=== PATIENT | female | born 1965 | race American Indian/Alaskan Native ===

== ENCOUNTER 2025-04-19 15:52 | Emergency (ER) | payer OTHER ==
[2025-04-19 16:19] LABS: PLATELET COUNT,PLT 316 10^3/uL (150-450); RED BLOOD CELL COUNT 5.24 10^6/uL (4.2-5.4); WHITE BLOOD CELL COUNT,WBC 9.8 10^3/uL (5.0-10.0)
[2025-04-19 16:29] LABS: BASOPHILS PERCENT AUTO 0.9 % (0.0-1.0); EOSINOPHILS PERCENT AUTO 11.8 % (1.0-3.0); LYMPHOCYTES PERCENT AUTO 29.7 % (20.5-50.1); MONOCYTES PERCENT AUTO 6.5 % (2-8); NEUTROPHILS PERCENT AUTO 51.1 % (42.2-75.2)
[2025-04-19 16:43] LABS: A/G RATIO 0.85; ALANINE AMINOTRANSFERASE,ALT 38.0 U/L (14-59); ASPARTATE AMNIOTRANSFERASE,AST 17.0 U/L (15-37); BILIRUBIN TOTAL 0.3 mg/dL (0.2-1.0); BLOOD UREA NITROGEN,BUN 10.0 mg/dL (7-18); CARBON DIOXIDE,CO2 32.0 mmol/L (21-32); CHLORIDE,CL 103.0 mmol/L (98-107); CREATININE 0.98 mg/dL (0.55-1.02); EST CRCL DRUG DOSING (CG) 54.69 mL/min; ESTIMATED GFR 67.0 mL/min (>=60); GLUCOSE RANDOM 113.0 mg/dL (70-99); POTASSIUM,K 3.5 mmol/L (3.5-5.1); PROTEIN TOTAL,TP 7.2 g/dL (6.4-8.2); SODIUM,NA 140.0 mmol/L (136-145)
[2025-04-19 16:48] LABS: B-TYPE NATRIURETIC PEPTIDE,BNP 9.0 pg/ml (0-100)
[2025-04-19 16:50] LABS: EOSINOPHILS PERCENT MAN 15 % (1-3); LYMPHOCYTES PERCENT MAN 37 % (20-50); MONOCYTES PERCENT MAN 4 % (2-8); SEG NEUTROPHILS PERCENT MAN 44 % (42-75)
[2025-04-19] MEDS: Dexamethasone 4 MG/ML SDV IVPUSH ONE (17:43)
== END 2025-04-19 17:54 | disposition home or self-care (01) ==
LOC: DL.ED 15:52
DX: J45.31 Mild persistent asthma with (acute) exacerbation (principal); Z90.710 Acquired absence of both cervix and uterus
CPT/HCPCS: 71046; 80053; 83735; 83880; 84484; 85025; 87428; 93005; 94640; 96374; 99285; J1100; J3535; J7620; 93010; 99284; A9270-GY